=== PATIENT | female | born 1970 | race Caucasian/White ===

== ENCOUNTER 2018-03-06 21:05 | Emergency (ER) | payer BC ==
[2018-03-06 21:15] VITALS: BP 106/68; PULSE 89; RESP 20; TEMP 97.6
[2018-03-06] MEDS ORDERED: TOPICAL SKIN ADHESIVE 1 EACH AMP TOPICAL ONE (21:22)
--- NOTE | 2018-03-06 21:31 | ED ---
Wound/Laceration HPI - General Source: patient, RN notes reviewed, old records reviewed Mode of arrival: ambulatory Limitations: no limitations <Jocelyn Kuo - Last Filed: 03/06/18 23:57> <Pastora Roy - Last Filed: 03/07/18 04:27> - General Chief Complaint: Wound/Laceration Stated Complaint: left wrist lac/ stab with scissors Time Seen by Provider: 03/06/18 21:17 - History of Present Illness Initial Comments: 48-year-old female presents emergency department today with a laceration over her left wrist. Patient reports that she was using scissors wrapping presents and states that a scissor tip cut the portion of her wrist. Her tetanus is up- to-date. Patient ports that she was having a lot of blood loss such as holding severe pressure over wrist. She reports she has range of motion of her wrist. She denies any pain with range motion of her fingers. She reports normal sensation distally. (Jocelyn Kuo) - Related Data Allergies Allergy/AdvReac Type Severity Reaction Status Date / Time No Known Allergies Allergy Verified 03/06/18 21:15 Review of Systems ROS Other: All systems not noted in ROS Statement are negative. <Jocelyn Kuo - Last Filed: 03/06/18 23:57> ROS Other: All systems not noted in ROS Statement are negative. <Pastora Roy - Last Filed: 03/07/18 04:27> ROS Statement: Those systems with pertinent positive or pertinent negative responses have been documented in the HPI. Past Medical History Past Medical History: No Reported History History of Any Multi-Drug Resistant Organisms: None Reported Past Surgical History: No Surgical Hx Reported Past Psychological History: No Psychological Hx Reported Smoking Status: Never smoker Past Alcohol Use History: Occasional Past Drug Use History: Marijuana <Jocelyn Kuo - Last Filed: 03/06/18 23:57> General Exam Limitations: no limitations General appearance: alert, in no apparent distress Head exam: Present: atraumatic, normocephalic, normal inspection Eye exam: Present: normal appearance, PERRL, EOMI. Absent: scleral icterus, conjunctival injection, periorbital swelling ENT exam: Present: normal exam, normal oropharynx, mucous membranes moist Neck exam: Present: normal inspection. Absent: tenderness, meningismus, lymphadenopathy Respiratory exam: Present: normal lung sounds bilaterally. Absent: respiratory distress, wheezes, rales, rhonchi, stridor Cardiovascular Exam: Present: regular rate, normal rhythm, normal heart sounds. Absent: systolic murmur, diastolic murmur, rubs, gallop, clicks GI/Abdominal exam: Present: soft, normal bowel sounds. Absent: distended, tenderness, guarding, rebound, rigid Extremities exam: Present: normal inspection, full ROM, normal capillary refill , other (Patient has less than .2cm laceration over medial wrist. ). Absent: tenderness, pedal edema, joint swelling, calf tenderness Back exam: Present: normal inspection, full ROM Neurological exam: Present: alert, oriented X3, CN II-XII intact Psychiatric exam: Present: normal affect, normal mood Skin exam: Present: warm, dry, intact, normal color. Absent: rash <Jocelyn Kuo - Last Filed: 03/06/18 23:57> <Pastora Roy - Last Filed: 03/07/18 04:27> - General Exam Comments Initial Comments: 48 year old female, no distress. (Jocelyn Kuo) Vital Signs 03/06/18 21:12 Temperature 97.6 F Pulse Rate 89 Respiratory 20 Rate Blood Pressure 106/68 O2 Sat by Pulse 98 Oximetry Medical Decision Making <Jocelyn Kuo - Last Filed: 03/06/18 23:57> <Pastora Roy P - Last Filed: 03/07/18 04:27> - Medical Decision Making Patient is a 48-year-old female with a laceration over her left wrist. She has a less than 0.2 cm laceration, small puncture at the site. Bleeding is controlled. Cleaned with iodine and small amount of Dermabond was placed over the area. I discussed holding pressure and have the Patient follow-up with PCP. She has full range of motion of fingers and normal capillary refill and sensation. Patient agrees to treatment plan will comply. (Jocelyn Kuo) I was available for consultation in the emergency department. The history and physical exam were done by the midlevel provider. I was consulted for this patient's care. I reviewed the case with the midlevel provider and based on their presentation of the patient, I agree with the assessment, medical decision making and plan of care as documented. (Pastora Roy) Disposition Is patient prescribed a controlled substance at d/c from ED?: No Time of Disposition: 21:32 <Jocelyn Kuo - Last Filed: 03/06/18 23:57> <Pastora Roy - Last Filed: 03/07/18 04:27> Clinical Impression: Laceration of left wrist Disposition: HOME SELF-CARE Condition: Good Instructions: Laceration (ED) Additional Instructions: Patient advised to monitor for any signs of infection. Return to emergency department if any alarming signs or symptoms occur. Referrals: Miquel Bello DO [Primary Care Provider] - 1-2 days
== END 2018-03-06 21:43 | disposition home or self-care (01) ==
LOC: EC 21:05
DX: S61.512A Laceration without foreign body of left wrist, initial encounter (principal); W27.2XXA Contact with scissors, initial encounter; Y93.89 Activity, other specified; Y92.009 Unspecified place in unspecified non-institutional (private) residence as the place of occurrence of the external cause
CPT/HCPCS: 12001; 99283